=== PATIENT | female | born 1985 | race Hispanic/Latino ===

== ENCOUNTER 2017-06-14 17:49 | Emergency (ER) | payer MEDICAID ==
[2017-06-14 17:56] VITALS: BMI 19.2
[2017-06-14 18:00] VITALS: BP 97/67; PULSE 80; RESP 16; TEMP 98.9; O2SAT 100
[2017-06-14] MEDS ORDERED: Oxycodone/Acetaminophen 5/325 mg Tab PO STA (18:06)
--- NOTE | 2017-06-14 18:09 | ED PDOC ---
Arrival/HPI - General Chief Complaint: Dental Pain Time Seen by Provider: 06/14/17 17:59 Historian: Patient - History of Present Illness Narrative History of Present Illness (Text): 06/14/17 18:06 32yo female who present with complaint of severe right sided upper lateral incisor pain. Notes she had root canal and filling on the tooth yesterday. States she was given Ibuprofen 800m and is not helping the pain. Denies any other complaint. Past Medical History - Provider Review Nursing Documentation Reviewed: Yes - Infectious Disease Hx of Infectious Diseases: None - Psychiatric Hx Substance Use: No Family/Social History - Physician Review Nursing Documentation Reviewed: Yes Family/Social History: Unknown Family HX Smoking Status: Never Smoked Hx Alcohol Use: No Hx Substance Use: No Allergies/Home Meds Allergies/Adverse Reactions: Allergies No Known Allergies Allergy (Verified 06/14/17 18:00) Review of Systems - Physician Review All systems were reviewed & negative as marked: Yes - Review of Systems Constitutional: Normal Eyes: Normal ENT: Other (toochache) Respiratory: Normal Cardiovascular: Normal Gastrointestinal: Normal Genitourinary Female: Normal Musculoskeletal: Normal Skin: Normal Neurological: Normal Endocrine: Normal Hemo/Lymphatic: Normal Psychiatric: Normal Physical Exam Vital Signs Reviewed: Yes Vital Signs Temp Pulse Resp BP Pulse Ox 06/14/17 17:50 98.9 F 80 16 97/67 L 100 Temperature: Afebrile Blood Pressure: Normal Pulse: Regular Respiratory Rate: Normal Appearance: Positive for: Well-Appearing, Non-Toxic, Comfortable Pain Distress: None Mental Status: Positive for: Alert and Oriented X 3 - Systems Exam Head: Present: Atraumatic, Normocephalic Pupils: Present: PERRL Extroacular Muscles: Present: EOMI Conjunctiva: Present: Normal Mouth: Present: Moist Mucous Membranes, Normal Teeth (right lateral incissor noted with filling. No surrounding gingival swelling noted) Neck: Present: Normal Range of Motion Respiratory/Chest: Present: Clear to Auscultation, Good Air Exchange. No: Respiratory Distress, Accessory Muscle Use Cardiovascular: Present: Regular Rate and Rhythm, Normal S1, S2. No: Murmurs Abdomen: Present: Normal Bowel Sounds. No: Tenderness, Distention, Peritoneal Signs Back: Present: Normal Inspection Upper Extremity: Present: Normal Inspection. No: Cyanosis, Edema Lower Extremity: Present: Normal Inspection. No: Edema Neurological: Present: GCS=15, CN II-XII Intact, Speech Normal Skin: Present: Warm, Dry, Normal Color. No: Rashes Psychiatric: Present: Alert, Oriented x 3, Normal Insight, Normal Concentration Medical Decision Making - Medication Orders Current Medication Orders: Discontinued Medications Oxycodone/Acetaminophen (Percocet 5/325 Mg Tab) 1 tab PO STAT STA Stop: 06/14/17 18:07 Last Admin: 06/14/17 18:23 Dose: [address] [facility] Pain Assessment Document 06/14/17 18:23 [facility] (Rec: 06/14/17 18:24 [facility] [address] [id number]) Pain Reassessment Is this a pain reassessment? No Disposition/Present on Arrival - Present on Arrival Any Indicators Present on Arrival: No History of DVT/PE: No History of Uncontrolled Diabetes: No Urinary Catheter: No History of Decub. Ulcer: No History Surgical Site Infection Following: None - Disposition Have Diagnosis and Disposition been Completed?: Yes Diagnosis: Toothache Disposition: HOME/ ROUTINE Disposition Time: 18:10 Patient Plan: Discharge Condition: STABLE Discharge Instructions (ExitCare): Dental Pain Additional Instructions: Follow up with your Dentist Return to ED for any new symptoms Prescriptions: traMADol [Ultram] 50 mg PO TID #9 tab Referrals: Jose Francisco Monroy DO [Staff Provider] - Follow up with primary Forms: [employer] ([place])
== END 2017-06-14 18:48 | disposition home or self-care (01) ==
LOC: ED 17:49
DX: K08.89 Other specified disorders of teeth and supporting structures (principal)

== ENCOUNTER 2017-07-07 22:07 | Emergency (ER) | payer MEDICAID ==
[2017-07-07 22:07] VITALS: BMI 19.2
--- NOTE | 2017-07-08 01:22 | ED PDOC ---
Arrival/HPI <Bin Tierney - Last Filed: 07/08/17 01:35> - General Historian: Patient - History of Present Illness Time/Duration: Other (see hpi) Quality: Aching Context: Home <Lexis Rick - Last Filed: 07/09/17 01:11> - General Chief Complaint: Dental Pain Time Seen by Provider: 07/08/17 01:00 - History of Present Illness Narrative History of Present Illness (Text): 07/08/17 01:00 Patient is not in the room. 07/08/17 01:21 This 32 yo female presents to this ED c/o right upper toothache x 1 day. Patient stated she was seen by her dentist x 2 days ago, and she had a dental procedure done. Patient developed pain yesterday. Patient has been taking Motrin 800 mg, and Amoxicillin prescribed by her dentist. Patient pain persist. Patient has an appointment to see her doctor on Tuesday (1 day and half). Denies fever, or dysphagia. (Lexis Rick) Past Medical History - Provider Review Nursing Documentation Reviewed: Yes - Infectious Disease Hx of Infectious Diseases: None - Psychiatric Hx Substance Use: No <Lexis Rick - Last Filed: 07/09/17 01:11> Family/Social History - Physician Review Nursing Documentation Reviewed: Yes Family/Social History: Other (noncontributory) Smoking Status: Never Smoked Hx Alcohol Use: No Hx Substance Use: No <Lexis Rick - Last Filed: 07/09/17 01:11> Allergies/Home Meds <Bin Tierney - Last Filed: 07/08/17 01:35> <Lexis Rick - Last Filed: 07/09/17 01:11> Allergies/Adverse Reactions: Allergies No Known Allergies Allergy (Verified 07/08/17 01:17) Home Medications: Home Meds Medication Instructions Recorded Confirmed Amoxicillin [Amoxil 500 mg Cap] 500 mg PO Q8 07/08/17 07/08/17 Review of Systems - Review of Systems Constitutional: Normal. absent: Fatigue, Weight Change, Fevers Eyes: Normal ENT: Other (right upper toothache) Respiratory: Normal Cardiovascular: Normal Gastrointestinal: Normal Genitourinary Female: Normal Musculoskeletal: Normal Skin: Normal Neurological: Normal Endocrine: Normal Hemo/Lymphatic: Normal Psychiatric: Normal <Lexis Rick - Last Filed: 07/09/17 01:11> Physical Exam Temperature: Afebrile Blood Pressure: Normal Pulse: Regular Respiratory Rate: Normal Appearance: Positive for: Well-Appearing, Non-Toxic, Comfortable Pain Distress: None Mental Status: Positive for: Alert and Oriented X 3 - Systems Exam Head: Present: Atraumatic, Normocephalic Pupils: Present: PERRL Extroacular Muscles: Present: EOMI Conjunctiva: Present: Normal Mouth: Present: Moist Mucous Membranes, Normal Lips, Normal Tounge, Other ((+) mild tenderness over tooth # 4, and 5) Pharnyx: Present: Normal. No: ERYTHEMA, EXUDATE, TONSILS ENLARGED Upper Extremity: Present: Normal Inspection, Normal ROM Lower Extremity: Present: Normal Inspection, Normal ROM Neurological: Present: GCS=15, CN II-XII Intact, Speech Normal, Motor Func Grossly Intact, Normal Sensory Function, Normal Cerebellar Funct, Gait Normal Skin: Present: Warm, Dry, Normal Color. No: Rashes Psychiatric: Present: Alert, Oriented x 3, Normal Insight, Normal Concentration <Lexis Rick - Last Filed: 07/09/17 01:11> Vital Signs Temp Pulse Resp BP Pulse Ox 07/08/17 02:12 98 F 88 101/76 07/08/17 01:28 98.4 F 72 18 107/70 100 Medical Decision Making <Bin Tierney - Last Filed: 07/08/17 01:35> Re-evaluation Time: 01:56 Reassessment Condition: Re-examined, Improved <Lexis Rick - Last Filed: 07/09/17 01:11> ED Course and Treatment: 07/08/17 01:56 Re-evaluation. Patient feels better. Discussed results and plan with patient who expresses understanding. All questions answered and there is agreement with the plan to discharge home with instructions. Patient stable for discharge. Return if symptoms persist or worsen. Patient came with toothache. Patient requested dental block. I reviewed risk and benefits regarding dental block. Dental block could worsen pain, improve pain, or not change of pain. She agreed with risk vs benefits, and she wants dental block. I also ordered Percocet right after dental block. Pain improved , and patient wished to be discharged home. (Lexis Rick) - Medication Orders Current Medication Orders: Discontinued Medications Bupivacaine HCl (Marcaine 0.5%) 1 ml IJ STAT STA Stop: 07/08/17 01:33 Ondansetron HCl (Zofran Odt) 4 mg PO STAT STA Stop: 07/08/17 02:00 Last Admin: 07/08/17 02:10 Dose: 4 mg Oxycodone/Acetaminophen (Percocet 5/325 Mg Tab) 1 tab PO STAT STA Stop: 07/08/17 01:54 Last Admin: 07/08/17 02:04 Dose: 1 tab MAR Pain Assessment Document 07/08/17 02:04 MS (Rec: 07/08/17 02:07 MS [id number]) Pain Reassessment Is this a pain reassessment? No Sleep Is patient sleeping during reassessment? No Presence of Pain Presence of Pain Yes Pain Scale Used Pain Scale Used Numeric Location Pain Location Body Risk Developer Description Description Constant Intensity of Pain at present 10 - PA / TOOL AND FIXTURE REPAIRER / Resident Statement MD/DO has reviewed & agrees with the documentation as recorded. <Bin Tierney - Last Filed: 07/08/17 01:35> Disposition/Present on Arrival <Bin Tierney - Last Filed: 07/08/17 01:35> - Present on Arrival Any Indicators Present on Arrival: No History of DVT/PE: No History of Uncontrolled Diabetes: No Urinary Catheter: No History of Decub. Ulcer: No History Surgical Site Infection Following: None - Disposition Have Diagnosis and Disposition been Completed?: Yes Disposition Time: 01:57 Patient Plan: Discharge <Lexis Rick - Last Filed: 07/09/17 01:11> - Disposition Diagnosis: Toothache Disposition: HOME/ ROUTINE Condition: IMPROVED Discharge Instructions (ExitCare): Dental Pain (DC) Additional Instructions: Call private doctor for follow up visit in 1-2 days. take medication as instructed. Return to emergency if symptoms worsen. Continue with home Motrin and Amoxicillin as instructed by your dentist. Make sure to see your dentist on Tuesday as scheduled by you. Prescriptions: Acetaminophen/Hydrocodone Bi [Vicodin 300 mg-5 mg] 1 tab PO Q4H PRN #10 tab PRN Reason: Pain, Severe (8-10) Referrals: Jordin Basilio MD [Family Provider] - Follow up with primary Forms: [employer] (Ukrainian), WORK NOTE
[2017-07-08 01:29] VITALS: RESP 18; O2SAT 100
[2017-07-08] MEDS ORDERED: Bupivacaine 0.5% Inj(30mL) IJ STA (01:32)
[2017-07-08] MEDS ORDERED: Oxycodone/Acetaminophen 5/325 mg Tab PO STA (01:53)
[2017-07-08 02:13] VITALS: BP 101/76; PULSE 88; TEMP 98
== END 2017-07-08 02:12 | disposition home or self-care (01) ==
LOC: ED 22:07
DX: K08.89 Other specified disorders of teeth and supporting structures (principal)

== ENCOUNTER 2017-07-08 18:39 | Emergency (ER) | payer MEDICAID ==
[2017-07-08 18:39] VITALS: BMI 19.2
[2017-07-08 18:51] VITALS: BP 109/75; PULSE 88; RESP 18; TEMP 98.3; O2SAT 100
--- NOTE | 2017-07-08 19:01 | ED PDOC ---
Arrival/HPI - General Time Seen by Provider: 07/08/17 18:46 Historian: Patient - History of Present Illness Narrative History of Present Illness (Text): 07/08/17 18:57 32yo female who present to Emergency department with complaint of right sided upper lateral incisor toothache x 3days. States she saw a Dentist and was placed on Amoxicillin. States the dentist states he won't do root canal until the infection resolves. She was also seen here yesterday for same complaint and was given Vicodin for the pain. States she is taking the Vicodin with Ibuprofen 800mg with temporary relieve. Notes the last time she took the medication was 2hours ago. she otherwise denies fever, chills, trauma, any other complaint. Past Medical History - Provider Review Nursing Documentation Reviewed: Yes - Infectious Disease Hx of Infectious Diseases: None - Psychiatric Hx Substance Use: No Family/Social History - Physician Review Nursing Documentation Reviewed: Yes Family/Social History: Unknown Family HX Smoking Status: Never Smoked Hx Alcohol Use: No Hx Substance Use: No Allergies/Home Meds Allergies/Adverse Reactions: Allergies No Known Allergies Allergy (Verified 07/08/17 01:17) Home Medications: Home Meds Medication Instructions Recorded Confirmed Amoxicillin [Amoxil 500 mg Cap] 500 mg PO Q8 07/08/17 07/08/17 Review of Systems - Physician Review All systems were reviewed & negative as marked: Yes - Review of Systems Constitutional: Normal Eyes: Normal ENT: Other (toothache) Respiratory: Normal Cardiovascular: Normal Gastrointestinal: Normal Genitourinary Female: Normal Musculoskeletal: Normal Skin: Normal Neurological: Normal Endocrine: Normal Hemo/Lymphatic: Normal Psychiatric: Normal Physical Exam Vital Signs Reviewed: Yes Vital Signs Temp Pulse Resp BP Pulse Ox 07/08/17 18:50 98.3 F 88 18 109/75 100 Temperature: Afebrile Blood Pressure: Normal Pulse: Regular Respiratory Rate: Normal Appearance: Positive for: Well-Appearing, Non-Toxic, Comfortable Pain Distress: None Mental Status: Positive for: Alert and Oriented X 3 - Systems Exam Head: Present: Atraumatic, Normocephalic Pupils: Present: PERRL Extroacular Muscles: Present: EOMI Conjunctiva: Present: Normal Mouth: Present: Moist Mucous Membranes, Normal Teeth (No loose tooth. No gum swelling noted) Neck: Present: Normal Range of Motion Respiratory/Chest: Present: Clear to Auscultation, Good Air Exchange. No: Respiratory Distress, Accessory Muscle Use Cardiovascular: Present: Regular Rate and Rhythm, Normal S1, S2. No: Murmurs Abdomen: No: Tenderness, Distention, Peritoneal Signs Back: Present: Normal Inspection Upper Extremity: Present: Normal Inspection. No: Cyanosis, Edema Lower Extremity: Present: Normal Inspection. No: Edema Neurological: Present: GCS=15, CN II-XII Intact, Speech Normal Skin: Present: Warm, Dry, Normal Color. No: Rashes Psychiatric: Present: Alert, Oriented x 3, Normal Insight, Normal Concentration Medical Decision Making ED Course and Treatment: 07/09/17 16:54 PT was already seen by bother her Dentist and here in ED for same complaint. She was advised to continue with her antibiotics, percocet and ibuprofen as was directed. Disposition/Present on Arrival - Present on Arrival Any Indicators Present on Arrival: No History of DVT/PE: No History of Uncontrolled Diabetes: No Urinary Catheter: No History Surgical Site Infection Following: None - Disposition Have Diagnosis and Disposition been Completed?: Yes Diagnosis: Toothache Disposition: HOME/ ROUTINE Disposition Time: 19:05 Patient Plan: Discharge Condition: STABLE Discharge Instructions (ExitCare): Dental Pain Additional Instructions: Follow up with your dentist Return to Emergency department for any new symptoms Referrals: [facility] [place] [Outside] - Follow up with primary Forms: [employer] (Azeri)
== END 2017-07-08 19:20 | disposition home or self-care (01) ==
LOC: ED 18:39
DX: K08.89 Other specified disorders of teeth and supporting structures (principal)